=== PATIENT | male | born 1995 | race African-American/Black ===

== ENCOUNTER 2017-11-26 19:13 | Emergency (ER) | payer SELFPAY | END 2017-11-26 19:25 | disposition home or self-care (01) | LOC: ERS 19:13 | DX: R10.9 Unspecified abdominal pain (principal); F17.210 Nicotine dependence, cigarettes, uncomplicated | CPT/HCPCS: 99281 ==

== ENCOUNTER 2018-03-06 16:28 | Emergency (ER) | payer SELFPAY ==
[2018-03-06 17:27] LABS: #Eosinphils 0.1 thou/uL (0.0-0.7); #Lymphocytes 1.9 thou/uL (1.20-3.40); #Monocytes 0.5 thou/uL (0.11-0.59); #Neutrophils 1.6 thou/uL (1.40-6.50); %Basophils 0.1 % (0.0-1.0); %Eosinophils 1.9 % (0.0-10.0); %Lymphocytes 48.2 % (28.0-48.0); %Monocytes 11.2 % (0.0-4.0); %Neutrophils 38.7 % (31.0-61.0); Hemoglobin 15.3 g/dL (14.0-18.0); Mean Corpuscular HGB CONC 35.2 g/dL (32.0-36.0); Mean Corpuscular Hemoglobin 32.5 pg (25.0-35.0); Mean Corpuscular Volume 92.5 fL (78.0-98.0); Mean Platelet Volume 7.5 fL (7.4-10.4); Platelet Count 177 thou/uL (130-400); RBC Distribution Width 11.3 % (11.5-14.5); Red Blood Cell (RBC) Count 4.72 mill/uL (4.00-5.20)
[2018-03-06 17:49] LABS: ALT (SGPT) 13 U/L (8-55); AST (SGOT) 30 U/L (5-34); Alkaline Phosphatase 71 U/L (Less than 750); Anion Gap 13 mmol/L (10-20); BUN (Urea Nitrogen) 14 mg/dL (8.9-20.6); Bilirubin, Total 1.8 mg/dL (0.2-1.2); Calc. Creatinine Clearance 0 mL/min (70-130); Calcium 10.1 mg/dL (7.8-10.44); Carbon Dioxide 24 mmol/L (22-29); Chloride 104 mmol/L (98-107); Estimated GFR-MDRD 72; Globulin 3.4 g/dL (2.4-3.5); Glucose 87 mg/dL (70-105); Potassium 3.4 mmol/L (3.5-5.1); Protein, Total 8.4 g/dL (6.0-8.3); Sodium 138 mmol/L (136-145)
[2018-03-06 17:50] LABS: Acetaminophen Less than 6.0 mcg/mL (10.0-30.0); Alcohol Less than 10 mg/dL (Less than 10); Salicylate Less than 8.0 mg/dL (15.0-30.0)
[2018-03-06] MEDS ORDERED: Lorazepam 1 MG TAB ONE (18:11)
[2018-03-06 19:01] LABS: Bilirubin Negative (Negative); Blood, Urine Negative (Negative); Clarity CLEAR (Clear); Glucose, Urine (Dipstick) Negative (Negative); Leukocyte Negative (Negative); Nitrite Negative (Negative); Protein, Urine (Dipstick) Negative (Neg-Trace); Specific Gravity, Urine 1.006 (1.002-1.036); pH, Urine 6.5 (5.0-9.0)
[2018-03-06 19:15] LABS: Amphetamine Detected (NotDetected); Barbiturates Screen Not Detected (NotDetected); Benzodiazepine Screen Detected (NotDetected); Cocaine Metabolite Screen Not Detected (NotDetected); Medtox Control Line Valid? VALID (VALID); Medtox Reader # READER 4; Methadone Not Detected (NotDetected); Methamphetamine Detected (NotDetected); Opiate Screen Not Detected (NotDetected); Oxycodone Screen Not Detected (NotDetected); Phencyclidine (PCP) Not Detected (NotDetected); THC/Cannabinoid Screen Detected (NotDetected); Tricyclic Screen Not Detected (NotDetected)
[2018-03-06] MEDS ORDERED: Nicotine 14 MG PATCH TOP SCH (21:15)
== END 2018-03-06 22:25 | disposition home or self-care (01) ==
LOC: ERS 16:28
DX: S01.81XA Laceration without foreign body of other part of head, initial encounter (principal); F17.210 Nicotine dependence, cigarettes, uncomplicated; X58.XXXA Exposure to other specified factors, initial encounter
CPT/HCPCS: 12011; 36415; 80053; 80306; 80307; 81003; 84443; 85025

== ENCOUNTER 2018-03-13 00:46 | Inpatient (IN) | payer SELFPAY ==
[2018-03-13 01:38] LABS: #Basophils 0.1 thou/uL (0.0-0.2); #Eosinphils 0.1 thou/uL (0.0-0.7); #Lymphocytes 2.5 thou/uL (1.20-3.40); #Monocytes 0.4 thou/uL (0.11-0.59); #Neutrophils 3.3 thou/uL (1.40-6.50); %Basophils 1.2 % (0.0-1.0); %Lymphocytes 38.8 % (28.0-48.0); %Monocytes 6.8 % (0.0-4.0); %Neutrophils 52.3 % (31.0-61.0); Hemoglobin 14.2 g/dL (14.0-18.0); Mean Corpuscular HGB CONC 36.5 g/dL (32.0-36.0); Mean Corpuscular Hemoglobin 33.4 pg (25.0-35.0); Mean Corpuscular Volume 91.6 fL (78.0-98.0); Mean Platelet Volume 7.6 fL (7.4-10.4); Platelet Count 179 thou/uL (130-400); RBC Distribution Width 11.2 % (11.5-14.5); Red Blood Cell (RBC) Count 4.24 mill/uL (4.00-5.20); White Blood Cell (WBC) Count 6.4 thou/uL (4.8-10.8)
[2018-03-13 01:56] LABS: ALT (SGPT) 10 U/L (8-55); AST (SGOT) 20 U/L (5-34); Acetaminophen Less than 6.0 mcg/mL (10.0-30.0); Albumin 4.6 g/dL (3.5-5.0); Alcohol Less than 10 mg/dL (Less than 10); Alkaline Phosphatase 66 U/L (Less than 750); Anion Gap 16 mmol/L (10-20); BUN (Urea Nitrogen) 9 mg/dL (8.9-20.6); Bilirubin, Total 0.6 mg/dL (0.2-1.2); CK (CPK) 527 U/L (30-200); Calc. Creatinine Clearance 0 mL/min (70-130); Calcium 10.1 mg/dL (7.8-10.44); Carbon Dioxide 22 mmol/L (22-29); Chloride 105 mmol/L (98-107); Estimated GFR-MDRD 70; Globulin 2.9 g/dL (2.4-3.5); Glucose 149 mg/dL (70-105); Potassium 3.7 mmol/L (3.5-5.1); Protein, Total 7.5 g/dL (6.0-8.3); Salicylate Less than 8.0 mg/dL (15.0-30.0); Sodium 139 mmol/L (136-145)
[2018-03-13 02:38] LABS: Bacteria/HPF None Seen HPF (None Seen); Bilirubin Small (Negative); Blood, Urine Negative (Negative); Clarity CLEAR (Clear); Glucose, Urine (Dipstick) Negative (Negative); Hyaline Casts/LPF 7-10 HYALINE CAST LPF (0-3 Hyaline); Leukocyte Negative (Negative); Nitrite Negative (Negative); Pathc Cast-AUWi Flag 0.58 (0-2.49); Protein, Urine (Dipstick) 100 mg/dL (Neg-Trace); Specific Gravity, Urine 1.034 (1.002-1.036); Squamous Epithelial None Seen HPF (0-3); WBC/HPF None Seen HPF (0-3)
[2018-03-13 02:40] LABS: Cocaine Metabolite Screen Not Detected (NotDetected); Medtox Reader # READER 4; Methamphetamine Detected (NotDetected); Phencyclidine (PCP) Not Detected (NotDetected); THC/Cannabinoid Screen Detected (NotDetected)
[2018-03-13 02:41] LABS: Amphetamine Detected (NotDetected); Barbiturates Screen Not Detected (NotDetected); Benzodiazepine Screen Detected (NotDetected); Medtox Control Line Valid? VALID (VALID); Methadone Not Detected (NotDetected); Opiate Screen Not Detected (NotDetected); Oxycodone Screen Not Detected (NotDetected); Tricyclic Screen Not Detected (NotDetected)
[2018-03-13 02:49] LABS: Crystals/HPF 2+ CA OXALATE HPF (Negative)
[2018-03-13] MEDS ORDERED: Nicotine 7 MG PATCH TOP SCH (04:45)
[2018-03-13] MEDS ORDERED: Lorazepam 2 MG/ML VIAL ONE ×2 (06:14→06:25)
[2018-03-13] MEDS ORDERED: Ziprasidone 20 MG VIAL ONE ×2 (06:30→06:41)
[2018-03-13] MEDS ORDERED: Sterile Water 10 ML ONE ×2 (06:32→06:40)
[2018-03-13] MEDS ORDERED: levETIRAcetam In NaCl (Iso-Os) 1,000 MG in Premix Bag 1 BAG IVPB SCH (06:45)
--- NOTE | 2018-03-13 08:01 | CT ---
CT OF HEAD NONCONTRAST: INDICATION: Seizure-like activity, 4-year-old male found down. FINDINGS: There is normal size of the ventricular system. No intracranial hemorrhage, mass effect, or midline shift. There is subtle hypoattenuation, nonspecific, involving white matter of the posterior left fr ontal lobe. There is no acute fluid level of the paranasal sinuses. IMPRESSION: 1. No acute intracranial hemorrhage or mass effect. 2. Subtle white matter hypoattenuation involving the posterior left frontal lobe. This could be art ifactual. As a conservative measure, a followup pre- and postcontrast brain MRI may be obtained as c linically warranted to exclude underlying pathology as a seizure nidus, given the clinical presentati on. POS: [facility]
--- NOTE | 2018-03-13 08:09 | RAD ---
RADIOGRAPH RIGHT HIP 2 VIEWS: HISTORY: A 22-year-old male status post acute traumatic injury to the right hip. FINDINGS: There is no fracture, dislocation, or any other osseous abnormality. IMPRESSION: Negative. POS: [facility]
--- NOTE | 2018-03-13 08:20 | CT ---
CT BRAIN NONCONTRAST: HISTORY: A 22-year-old male status post head trauma due to fall after seizure. FINDINGS: The ventricles are normal in size and configuration. There is no midline shift or any other mass eff ect. There is no evidence of acute intracranial hemorrhage, large cortical infarct, or extraaxial fl uid collection. The brumfield matter /white matter differentiation is maintained. The calvarium is intac t. The tympanomastoid cavities, and the upper portions of the paranasal sinuses included in these im ages, are grossly clear. IMPRESSION: Normal. jn [] POS: [facility]
--- NOTE | 2018-03-13 08:47 | CT ---
CT CERVICAL SPINE NONCONTRAST: HISTORY: A 22-year-old male status post acute cervical trauma due to fall from seizure. FINDINGS: Alignment is normal. The vertebral body heights are maintained. Disc spaces are maintained. There is no evidence of acute fracture. There is no evidence of high grade central spinal canal stenosis or hi gh grade neuroforaminal stenosis. There are no high grade degenerative facet changes. There is no p revertebral soft tissue swelling. IMPRESSION: Normal. frances[] POS: [facility]
[2018-03-13] MEDS ORDERED: Acetaminophen 650 MG Suppository PR PRN (15:14)
[2018-03-13] MEDS ORDERED: Acetaminophen 325 MG TAB PO PRN (15:14)
[2018-03-13] MEDS ORDERED: Bisacodyl 5 MG TAB PO PRN (15:14)
[2018-03-13] MEDS ORDERED: Sodium Chloride 0.9% 1,000 ML IV SCH (15:30)
--- NOTE | 2018-03-13 15:57 | HP ---
PRIMARY CARE PROVIDER: None. CHIEF COMPLAINT: Seizures. HISTORY OF PRESENT ILLNESS: Mr. Watkins is a 22-year-old gentleman who was seen at [facility] on 03/13/2018. He was reportedly working last night when he had a seizure. 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 There is also report that he was vomiting blood, although it is unclear if this is accurate. The patient has reportedly been sleep deprived and has not slept since 5:20 a.m. yesterday. He also reportedly took two ecstasy pills yesterday. Patient does not have any history of seizures. There is no history of urinary or fecal incontinence. He also bit his lip during the seizure episod e. He also reported having suicidal thoughts in the emergency room. He reports being stressed. He also reportedly admitted to Xanax and marijuana use. Please note that the above account is obtained from review of medical record and discussion with the emergency room physician. The patient is currently lying in bed, not speaking. REVIEW OF SYSTEMS: Could not be completed because of patient's noncooperation. PAST MEDICAL HISTORY: None. PAST SURGICAL HISTORY: Teeth removal. FAMILY HISTORY: Unable to obtain. SOCIAL HISTORY: Patient reportedly drinks alcohol twice a month. He uses marijuana. He smokes 1 pa ck of cigarettes every 3 days. ALLERGIES: No known drug allergies. CURRENT MEDICATIONS: None. PHYSICAL EXAMINATION: GENERAL: Mr. Watkins is sleepy, but arousable, not in acute distress. VITAL SIGNS: Blood pressure is 137/85, pulse 55, respiratory rate 18, and oxygen saturation 99% on r oom air. He is afebrile. EYES: No scleral icterus. No conjunctival pallor. ENT: Moist mucosal membranes, no oropharyngeal erythema or exudates. NECK: Supple, nontender, trachea is midline. RESPIRATORY: Accessory muscles of breathing are not active. Chest wall movements are symmetric bila terally. LUNGS: Clear to auscultation without wheeze, rhonchi or crepitations. CARDIOVASCULAR: S1 and S2 are heard, regular. Peripheral pulses palpable. No carotid bruit, no per icardial rub. ABDOMEN: Soft, nontender, bowel sounds are heard, no hepatomegaly, no splenomegaly. NEUROLOGIC: Full neurologic examination was not possible secondary to the patient's noncooperation. No facial droop. Deep tendon reflexes are 2+. MUSCULOSKELETAL: The patient is moving all four extremities. SKIN: No rashes or subcutaneous nodules. LYMPHATIC: No cervical lymphadenopathy. PSYCHIATRIC: Normal mood, normal affect, patient appears to be oriented to person, unable to assess orientation to place or time. LABORATORY DATA AND IMAGING: Mr. Watkins's labs and investigations were reviewed. I reviewed his asia ctrocardiogram, which shows normal sinus rhythm, no ST changes to suggest an acute coronary syndrome. I also reviewed his noncontrast CT scan of the brain, which does not show any acute intracranial ab normality. X-rays of the right hip did not show any fracture or dislocation. CT scan of the C-spine was normal. He has an unremarkable CBC, unremarkable comprehensive metabolic profile, elevated crea tinine kinase level of 527, normal prolactin level. Urinalysis positive for protein, ketones, biliru bin and hyaline casts and urine toxicology screen that is positive for amphetamines, methamphetamines , benzodiazepines, and cannabinoids. Plasma alcohol level is less than 10. ASSESSMENT AND PLAN: Mr. Watkins is a pleasant 22-year-old gentleman who was seen at [facility] on 03/13/2018. His problem list includes: 1. Seizures: Mr. Watkins was brought to the emergency room for a possible seizure[facility]. He has been started on Keppra. I will continue him on Keppra. We will consult Neurology for opinion and help with management. We will order EEG. We will continu e patient on seizure precautions. 2. Tobacco abuse: We will start the patient on nicotine replacement therapy. We will service counselor him w hen he is more alert. 3. Polysubstance abuse: We will service counselor the patient when he is more awake. 4. Rhabdomyolysis: The patient has normal renal function. We will provide intravenous hydration an d recheck his creatinine. LEVEL OF RISK: High. LEVEL OF COMPLEXITY: High.
[2018-03-13] MEDS ORDERED: Nicotine 14 MG PATCH TD SCH (16:00)
== END 2018-03-13 17:10 | disposition left against medical advice (07) | DRG 101 ==
LOC: ERS 00:46 → ERHOLD 08:15 → 2SE 17:00
PROVIDERS: ADMIT Internal Medicine; ATTEND Internal Medicine
DX: R56.9 Unspecified convulsions (principal); M62.82 Rhabdomyolysis; F17.210 Nicotine dependence, cigarettes, uncomplicated; F19.10 Other psychoactive substance abuse, uncomplicated
CPT/HCPCS: 36415; 70450; 72125; 80053; 80306; 80307; 81003; 81015; 82550; 84146; 84443; 85025; 93005; A4216; J1953; J2060; J3486